=== PATIENT | female | born 1975 | race Caucasian/White ===

== ENCOUNTER 2020-07-06 09:07 | Day surgery (SDC) | payer OTHER, SELFPAY ==
[2020-06-30 10:28] VITALS: BMI 32.9
--- NOTE | 2020-07-03 13:10 | MHC.SHP ---
Pre-Procedural Eval Section A The patient is an INPATIENT: No The History & Physical has been completed within 30 days and I have reviewed it.: Yes Section B Chief Complaint: Cataract Right Eye Allergies: Allergies Allergy/AdvReac Type Severity Reaction Status Date / Time aspirin [ASA] Allergy Intermediate Swelling Verified 06/30/20 10:18 latex Allergy Intermediate Rash Verified 06/30/20 10:18 Plan Diagnosis/Plan: Unchanged I have reviewed the history and physical and performed a pertinent physical examination on my patient. No changes have occurred unless specified.
[2020-07-06 10:19] VITALS: BP 122/68; PULSE 86; RESP 16; TEMP 37; O2SAT 97
[2020-07-06 10:26] LABS: Glucose, Whole Blood 65 mg/dL (60-115)
[2020-07-06] MEDS: Tetracaine HCl/PF 0.5% Oph Sol 4 ML DROPS 1 DROP EYE-RIGHT (10:31)
--- NOTE | 2020-07-06 10:33 | HO.ANESPROP2 ---
HPI - Anesthesia Eval Consult details Narrative: 44 year old female patient here for Right cataract extraction and IOL insertion PMFSH Past Medical History Medical History (Updated 06/30/20 @ 10:22 by Lexie Hebert) Anemia Chronic kidney disease Elevated cholesterol GERD (gastroesophageal reflux disease) HTN (hypertension) IDDM (insulin dependent diabetes mellitus) Joint pain Murmur Vision decreased Family History Family history of problems with anesthesia: No Surgical History Surgical History (Updated 06/30/20 @ 14:31 by Lexie Hebert) Hx of left cataract extraction Hx of vitrectomy History of Problems with Anesthesia: No Social History Social History (Updated 06/30/20 @ 10:23 by Lexie Hebert) Alcohol intake: never Smoking Status: Never smoker Use of substances other than those prescribed or required for medical reasons: No Advance Directives: No Advance Directives Information Provided: No Advance Directives on File: No Meds Allergies Allergy/AdvReac Type Severity Reaction Status Date / Time aspirin [ASA] Allergy Intermediate Swelling Verified 06/30/20 10:18 latex Allergy Intermediate Rash Verified 06/30/20 10:18 Active Medications: Current Medications Generic Name Dose Route Start Last Admin Trade Name Freq PRN Reason Stop Dose Admin Sodium Chloride 500 mls @ 50 mls/hr 07/06/20 06:00 Ns IV 07/06/20 15:59 .Q10H NOLBERTO Lactated Ringer's 500 mls @ 50 mls/hr 07/06/20 07:15 Lr IV .Q10H NOLBERTO Povidone Iodine 1 appl 07/06/20 10:11 Povidone Iodine 5 % Ophth Soln 30 Ml Bottle EYE-RIGHT PREOP PRN Pre-Op Surgical Implant Prophy Home Medications Medication Instructions Recorded Confirmed Last Taken Type acetaminophen [Pain Relief Extra 1 tab PO Q4H PRN 06/30/20 06/30/20 Unknown History Strength] atorvastatin 1 tab PO DAILY 06/30/20 06/30/20 Unknown History doxycycline monohydrate 1 cap PO BID 06/30/20 06/30/20 Unknown History ferrous sulfate 1 tab PO TID 06/30/20 06/30/20 07/06/20 History insulin degludec [Tresiba unit SUBCUT 06/30/20 Unknown History FlexTouch U-200] insulin lispro [Humalog KwikPen unit SUBCUT 06/30/20 Unknown History Insulin] labetalol 1 tab PO BEDTIME 06/30/20 06/30/20 Unknown History liraglutide [Victoza 3-Francis] 1.8 mg SUBCUT DAILY 06/30/20 06/30/20 Unknown History losartan-hydrochlorothiazide 1 tab PO DAILY 06/30/20 06/30/20 07/06/20 History metformin 1 tab PO BID 06/30/20 06/30/20 Unknown History sennosides-docusate sodium 1 tab PO DAILY PRN 06/30/20 06/30/20 Unknown History [Senna-Time S] Exam Exam Date and Time: July 06, 2020 1033 Height,Weight and Vital Signs: Height 5 ft 9 in Weight 101.151 kg Last Vital Signs Temp 98.6 F 07/06/20 10:19 Pulse 86 07/06/20 10:19 Resp 16 07/06/20 10:19 BP 122/68 07/06/20 10:19 Pulse Ox 97 07/06/20 10:19 Pertinent Lab Results Pertinent Lab Results: Laboratory Tests 07/06/20 10:22 POC Glucose 65 Airway Mallampati Class: II TM Dist: >3cm Heart: RRR Lungs: CTAB Assessment and Plan Assessment Anesthesia Assessment: Anesthesia Plan Discussed and Chart Reviewed Final Anesthetic Review NPO: Yes ASA Class: III Final Preanesthetic Review: No Changes in Pt Med Stat, Meds/Allgs Chart Reviewed, Consent Obtained/Reviewed and Anes Risks/Benef Reviewed Patient Risk: Intermediate Procedure Risk: Low Assessment/Block/Sedation in SS: Assess/Block/Sedation-SS Anesthetic Plan Anesthetic Plan: MAC: Disposition: Standard PACU
[2020-07-06] MEDS: Tropicamide 1 % Ophth Sol 3 ML BTL 1 DROP EYE-RIGHT ×3 (10:35→10:43)
[2020-07-06] MEDS: Phenylephrine HCL 2.5% Oph SoL 2 ML BOTTLE 1 DROP EYE-RIGHT ×3 (10:37→10:45)
[2020-07-06] MEDS: 0.9 % Sodium Chloride 500 ML 50 ML IV (10:45)
[2020-07-06] MEDS: Dextrose 5 % 100 ML 999 ML IV (10:46)
--- NOTE | 2020-07-06 11:00 | HO.PNOPHT ---
Ophthalmology Procedure Procedure Date of Service: 07/06/20 Ophthalmology Viscoelastic: Healon Duet Dual Pack Pro Ophthalmology Lenses: TECNIS [id number] (22.5) Procedure Notes: PREOPERATIVE DIAGNOSIS: Decreased visual acuity right eye secondary to cataract POSTOPERATIVE DIAGNOSIS: Same PROCEDURE: Right cataract extraction with intraocular lens insertion, Malyugin ring, trypan blue SURGEON: Michael Serna M.D. ANESTHESIA: Topical/MAC ESTIMATED BLOOD LOSS: None COMPLICATIONS: None After obtaining informed consent, the patient was brought to the operating room suite and placed in the supine position. After adequate sedation per anesthesia, topical drops of Tetracaine were given to the right eye. The eye was then prepped and draped in the usual sterile fashion. The operating room microscope was then positioned over the operative eye and a lid speculum placed. A paracentesis was created. Intracarmal MPF lidocaine was utilized due to poor dilation. An air bubble was then introduced into the anterior chamger followed by tryan blue.Viscoelastic was then instilled into the anterior chamber. A three plane incision was then created temporally, utilizing a 2.85 mm keratome. A Maylugin Ring was placed. Capsulotomy forceps were then utilized to create a circular tear capsulotomy. Hydrodissection and hydrodelineation were carried out until adequate mobilization of the nucleus occurred. Phacoemulsification was then utilized to remove the dense central nucleus followed by removal of the cortical material utilizing the automated aspiration irrigation unit. Viscoelastic was instilled into the posterior capsular bag followed by placement of a posterior chamber intraocular lens without difficulty. The Maylugin Ring was removed.The residual Viscoelastic was then removed utilizing the automated IA machine. The wound was checked and found to be watertight. The patient tolerated the procedure well and the lid speculum was removed. Intracameral injection of Vigamox 0.1 mL followed by a subtenon injection of Kenalog-40 0.2 mL were administered. The patient will be seen in the a.m.
[2020-07-06 11:39] VITALS: BP 127/88; PULSE 75; RESP 16; TEMP 36.9; O2SAT 97
== END 2020-07-06 12:07 | disposition home or self-care (01) ==
PROVIDERS: PCP Physician Assistant; Visit Provider Ophthalmology
PROC: (CPT 66985; principal; 2020-07-06 11:10)
DX: H25.11 Age-related nuclear cataract, right eye (principal); H54.7 Unspecified visual loss; Z96.1 Presence of intraocular lens; E11.22 Type 2 diabetes mellitus with diabetic chronic kidney disease; I12.9 Hypertensive chronic kidney disease with stage 1 through stage 4 chronic kidney disease, or unspecified chronic kidney disease; N18.9 Chronic kidney disease, unspecified; Z79.4 Long term (current) use of insulin; Z79.899 Other long term (current) drug therapy
CPT/HCPCS: 66984; 82947; J2250; J3010; J3300; V2632

== ENCOUNTER 2022-10-03 11:18 | Outpatient (REF) | payer MEDICAID, SELFPAY ==
[2022-10-03 12:19] VITALS: BP 145/69; PULSE 72; RESP 16; TEMP 36.7; O2SAT 98; BMI 34.4
== END 2022-10-03 11:19 | disposition home or self-care (01) ==
LOC: HO.MS 11:18
PROVIDERS: PCP Physician Assistant; Visit Provider Ophthalmology
PROC: (CPT 66821; principal; 2022-10-03 15:20)
DX: H26.491 Other secondary cataract, right eye (principal); E11.3593 Type 2 diabetes mellitus with proliferative diabetic retinopathy without macular edema, bilateral; I10 Essential (primary) hypertension
CPT/HCPCS: 66821

== ENCOUNTER 2022-10-17 11:51 | Outpatient (REF) | payer MEDICAID, SELFPAY ==
[2022-10-17 12:36] VITALS: BP 138/70; PULSE 75; RESP 16; TEMP 36.4; O2SAT 97
[2022-10-17 12:37] VITALS: BMI 34.4
== END 2022-10-17 11:52 | disposition home or self-care (01) ==
LOC: HO.MS 11:51
PROVIDERS: PCP Physician Assistant; Visit Provider Ophthalmology
PROC: (CPT 66821; principal; 2022-10-17 14:20)
DX: H26.492 Other secondary cataract, left eye (principal); E11.9 Type 2 diabetes mellitus without complications; I10 Essential (primary) hypertension
CPT/HCPCS: 66821